=== PATIENT | female | born 1995 | race Asian ===

== ENCOUNTER 2018-01-12 19:01 | Emergency (ER) | payer MEDICAID ==
[~2018-01-12] VITALS: Ht 162.6 cm; Wt 61.0 kg
[2018-01-12 21:32] VITALS: BP 124/80
== END 2018-01-12 22:12 | disposition home or self-care (01) ==
LOC: EMS 19:03
DX: S60.222A Contusion of left hand, initial encounter (principal); R03.0 Elevated blood-pressure reading, without diagnosis of hypertension; F17.210 Nicotine dependence, cigarettes, uncomplicated; J45.909 Unspecified asthma, uncomplicated; W22.8XXA Striking against or struck by other objects, initial encounter; Y93.89 Activity, other specified; Y92.89 Other specified places as the place of occurrence of the external cause; Y99.8 Other external cause status
CPT/HCPCS: 29280; 99284